=== PATIENT | female | born 1990 | race Caucasian/White ===

== ENCOUNTER 2017-08-01 20:59 | Emergency (ER) | payer OTHER ==
[~2017-08-01] VITALS: Ht 160 cm; Wt 70.3 kg
[2017-08-01 21:12] VITALS: BP 90/48
[2017-08-01] MEDS ORDERED: IV NORMAL SALINE 1,000ML 1,000 ML IV ONE ×2 (21:45)
[2017-08-01] MEDS ORDERED: HYDROmorphone PF 1 MG/ML DISP.SYRIN IV ONE ×2 (21:45→23:30)
[2017-08-01] MEDS ORDERED: ONDANSETRON PF 4 MG/2 ML VIAL. IV ONE (21:45)
[2017-08-01] MEDS ORDERED: KETOROLAC 15 MG/ML VIAL. IV ONE (21:45)
[2017-08-01 21:48] LABS: BASO % 0 % (0-3); EOS # 0.1 x10^3/uL (0.0-0.7); EOS % 1 % (0-3); HEMATOCRIT 42.2 % (36.0-47.0); HEMOGLOBIN 14.3 g/dL (12.0-15.5); LYMPH % 19 % (24-48); MEAN CORPUSCULAR HEMOGLOBIN 31 pg (25-35); MEAN CORPUSCULAR HGB CONC 34 g/dL (31-37); MEAN CORPUSCULAR VOLUME 91 fL (79-100); MONO # 0.6 x10^3/uL (0.0-1.1); MONO % 5 % (0-9); NEUT # 8.3 x10^3uL (1.8-7.7); NEUT % 75 % (31-73); PLATELET COUNT 392 x10^3/uL (140-400); RED BLOOD COUNT 4.62 x10^6/uL (3.50-5.40)
[2017-08-01 21:56] LABS: CREATININE 0.7 mg/dL (0.6-1.0); POTASSIUM 3.6 mmol/L (3.5-5.1); TOTAL BILIRUBIN 0.3 mg/dL (0.2-1.0); TOTAL PROTEIN 8.1 g/dL (6.4-8.2)
[2017-08-01] MEDS ORDERED: CONTRAST GIVEN MC PRN (22:00)
[2017-08-01] MEDS ORDERED: IOHEXOL 300 MG/ML 75 ML VIAL. IV ONE (22:00)
[2017-08-01 22:05] LABS: BACTERIA,URINE FEW /HPF (0-FEW); BILIRUBIN,URINE NEG (NEG); CLARITY,URINE HAZY; COLOR,URINE YELLOW; GLUCOSE,URINE >=1000 mg/dL (NEG); NITRITE,URINE NEG (NEG); SQUAMOUS EPITHELIAL CELL,UR MANY /LPF; UROBILINOGEN,URINE 0.2 mg/dL (0.2 mg/dL)
[2017-08-01 22:26] LABS: FECAL OB PT NEGATIVE (NEG)
--- NOTE | 2017-08-01 22:27 | RAD ---
EXAM: Abdomen and pelvis CT with intravenous contrast. HISTORY: Pain and diarrhea. TECHNIQUE: Computed tomographic images of the abdomen and pelvis were obtained following the administration of 75 cc Omnipaque 300 intravenous contrast. Multiplanar reformatting was performed. *One or more of the following individualized dose reduction techniques were utilized for this examination: 1. Automated exposure control. 2. Adjustment of the mA and/or kV according to patient size. 3. Use of iterative reconstruction technique. COMPARISON: 09/19/2016. FINDINGS: Evaluation of the lower thorax is unremarkable. There is slight fatty infiltration of the liver along the falciform ligament. No suspicious hepatic lesion is seen. The gallbladder, pancreas, spleen, adrenal glands and kidneys are unremarkable. There is no evidence of appendicitis or bowel obstruction. There is no abnormal bowel wall thickening. There is a 4.6 cm right adnexal cyst, likely ovarian or paraovarian in etiology. The uterus is anteverted. There is a small amount of nonspecific pelvic free fluid. No pathologically enlarged lymph node is seen. There is no suspicious osseous lesion. IMPRESSION: 1. 4.6 cm right adnexal cyst, likely ovarian or paraovarian in etiology. There is a small amount of nonspecific pelvic free fluid. 2. Otherwise, no acute abdominal or pelvic finding. Electronically signed by: Jami Castillo MD (08/01/2017 10:23 PM) [facility]
[2017-08-01] MEDS ORDERED: ONDA4TAB10 SL (23:07)
[2017-08-01] MEDS ORDERED: PROM25TA10 PO (23:07)
[2017-08-01] MEDS ORDERED: CIPR500T94 PO (23:08)
--- NOTE | 2017-08-01 23:08 | PHYS DOC ---
Past History Past Medical History: Diabetes, Other Past Surgical History: No Surgical History, Other Smoking: Non-smoker Alcohol Use: None Drug Use: None Adult General Chief Complaint Chief Complaint: DIARRHEA HPI HPI Patient is a 27-year-old female who has a history significant for IDDM presents here today complaining of diarrhea. Patient reports that she's had multiple bowel movements today. Patient reports that she has a history significant for similar episodes with unclear etiology. Patient reports that she was admitted in the past secondary to severe diarrhea and dehydration and DKA. Patient reports that she saw Dr. Horvath yesterday for follow-up evaluation of her abdominal pain. Patient reports that she had pain in her left upper quadrant. Patient reports that she's had an endoscopy/colonoscopy in the past by Dr. Horvath that was unremarkable. He reports no identifiable cause was identified last time she had similar episodes back in July 2015. Patient reports when she saw Dr. Horvath today he recommended that she get an ultrasound of her right upper quadrant. He thought her discomfort in her left upper quadrant may be secondary to gallbladder disease. He also called in a prescription for Creon for her to assist her with her discomfort. Patient reports she's taken all her medications at home without any relief in her pain or symptoms. Patient denies any fevers shakes chills cough cold rhinorrhea. Patient denies any dysuria frequency or urgency. Patient denies any vaginal discharge. Patient denies any bloody stools. Patient is concerned about going to DKA secondary to dehydration. Review of systems: Constitutional: Denies fever or chills Eyes: Denies change in visual acuity, redness, or eye pain HENT: Denies nasal congestion or sore throat All other systems were reviewed and found to be within normal limits, except as documented in this note. Physical exam Constitutional: Well developed, well nourished, no acute distress, non-toxic appearance. HENT: Normocephalic, atraumatic, bilateral external ears normal, oropharynx moist, no oral exudates, nose normal. Eyes: PERRLA, EOMI, conjunctiva normal, no discharge. Neck: Normal range of motion, no tenderness, supple, no stridor. Cardiovascular:Heart rate regular rhythm, Lungs & Thorax: Bilateral breath sounds clear to auscultation Abdomen: Nondistended. Soft nondistended no rebound or guarding. Patient was tenderness to palpation to her left upper quadrant. Patient has no tenderness to palpation to her right upper quadrant or right lower quadrant. Patient has minimal tenderness to her left lower quadrant. Patient has no signs or symptoms consistent with acute surgical abdomen. Patient has no psoas or obturator signs. Patient has no tenderness at McBurney's point. Patient has no Adam sign. Patient NABS. Skin: Warm, dry, no erythema, no rash. Back: No tenderness, no CVA tenderness. Extremities: No tenderness, no cyanosis, no clubbing, ROM intact, no edema. Neurologic: Alert and oriented X 3, normal motor function, normal sensory function, no focal deficits noted. Psychologic: Affect normal, judgement normal, mood normal. ER physical exam is significant for: Tenderness to palpation her left upper quadrant. CBC, CMP, UA, chest all unremarkable. Patient's CT scan of the abdomen pelvis did not reveal any acute source to her pain. Assessment and plan: 1. 27-year-old Female who presents here today secondary to abdominal pain and diarrhea. Patient's ER hospital course is been significant for normal labs. Patient has CT scan of the abdomen and pelvis which did not reveal any acute pathology. Patient received 2 L of normal saline as well as Zofran, Toradol, Dilaudid. Patient's labs revealed no source of her discomfort. They revealed no lab abnormalities OB consistent with her concerning for diabetic ketoacidosis. Patient has no anion gap and no acidosis. Patient has no ketones in her urine. I discussed all lab results with the patient and this time and inform her that I feel that her labs are all unremarkable and no identifiable causes has been identified in that she will likely be able be discharged home safely to continue outpatient workup with Dr. Horvath. With regards or diarrhea, stool sample has been sent to the lab and are still pending. C. difficile, fecal leukocytes, so cultures been sent. Given the amount of diarrhea she is having a fecal be reasonable to start her on ciprofloxacin empirically until cultures return. Current Medications Current Medications Current Medications Medications (Trade) Dose Ordered Sig/Mitzy Start Time Stop Time Status Last Admin Dose Admin Hydromorphone HCl (Dilaudid) 0.5 mg 1X ONCE 08/01/17 21:45 08/01/17 21:46 DC 08/01/17 21:44 0.5 MG Info (Do NOT chart on this entry -- for MONITORING) 1 each PRN DAILY PRN 08/01/17 22:00 08/03/17 21:59 Iohexol (Omnipaque 300 Mg/ml) 75 ml 1X ONCE 08/01/17 22:00 08/01/17 22:01 DC 08/01/17 21:56 75 ML Ketorolac Tromethamine (Toradol) 15 mg 1X ONCE 08/01/17 21:45 08/01/17 21:46 DC 08/01/17 21:46 15 MG Ondansetron HCl (Zofran) 4 mg 1X ONCE 08/01/17 21:45 08/01/17 21:46 DC 08/01/17 21:43 4 MG Sodium Chloride 1,000 ml @ 1,000 mls/hr 1X ONCE 08/01/17 21:45 08/01/17 22:45 DC 08/01/17 21:44 1,000 MLS/HR Allergies Allergies Allergies Coded Allergies Type Severity Reaction Last Updated Verified latex Allergy Mild REDNESS, PEELS 04/04/16 Yes Current Patient Data Vital Signs Vital Signs Date Time Temp Pulse Resp B/P (MAP) Pulse Ox O2 Delivery O2 Flow Rate FiO2 08/01/17 21:12 98.5 111 20 97 Room Air Lab Results Laboratory Tests Test 08/01/17 21:15 08/01/17 21:23 08/01/17 22:37 White Blood Count 11.0 x10^3/uL (4.0-11.0) Red Blood Count 4.62 x10^6/uL (3.50-5.40) Hemoglobin 14.3 g/dL (12.0-15.5) Hematocrit 42.2 % (36.0-47.0) Mean Corpuscular Volume 91 fL (79-100) Mean Corpuscular Hemoglobin 31 pg (25-35) Mean Corpuscular Hemoglobin Concent 34 g/dL (31-37) Red Cell Distribution Width 13.0 % (11.5-14.5) Platelet Count 392 x10^3/uL (140-400) Neutrophils (%) (Auto) 75 % (31-73) H Lymphocytes (%) (Auto) 19 % (24-48) L Monocytes (%) (Auto) 5 % (0-9) Eosinophils (%) (Auto) 1 % (0-3) Basophils (%) (Auto) 0 % (0-3) Neutrophils # (Auto) 8.3 x10^3uL (1.8-7.7) H Lymphocytes # (Auto) 2.0 x10^3/uL (1.0-4.8) Monocytes # (Auto) 0.6 x10^3/uL (0.0-1.1) Eosinophils # (Auto) 0.1 x10^3/uL (0.0-0.7) Basophils # (Auto) 0.0 x10^3/uL (0.0-0.2) Urine Collection Type Unknown Urine Color Yellow Urine Clarity Hazy Urine pH 5.0 Urine Specific [place] 1.015 Urine Protein Neg (NEG-TRACE) Urine Glucose (UA) >=1000 mg/dL (NEG) Urine Ketones (Stick) Trace mg/dL (NEG) Urine Blood Neg (NEG) Urine Nitrite Neg (NEG) Urine Bilirubin Neg (NEG) Urine Urobilinogen Dipstick 0.2 mg/dL (0.2 mg/dL) Urine Leukocyte Esterase Neg (NEG) Urine RBC 3-5 /HPF (0-2) Urine WBC 5-10 /HPF (0-4) Urine Squamous Epithelial Cells Many /LPF Urine Bacteria Few /HPF (0-FEW) Urine Mucus Slight /LPF Stool Occult Blood Negative (NEG) Sodium Level 141 mmol/L (136-145) Potassium Level 3.6 mmol/L (3.5-5.1) Chloride Level 105 mmol/L (98-107) Carbon Dioxide Level 22 mmol/L (21-32) Anion Gap 14 (6-14) Blood Urea Nitrogen 8 mg/dL (7-20) Creatinine 0.7 mg/dL (0.6-1.0) Estimated GFR (Cockcroft-Gault) 102.0 BUN/Creatinine Ratio 11 (6-20) Glucose Level 192 mg/dL (70-99) H Calcium Level 9.0 mg/dL (8.5-10.1) Total Bilirubin 0.3 mg/dL (0.2-1.0) Aspartate Amino Transferase (AST) 13 U/L (15-37) L Alanine Aminotransferase (ALT) 20 U/L (14-59) Alkaline Phosphatase 89 U/L (46-116) Total Protein 8.1 g/dL (6.4-8.2) Albumin 4.0 g/dL (3.4-5.0) Albumin/Globulin Ratio 1.0 (1.0-1.7) Lipase 74 U/L (73-393) Glucose (Fingerstick) 198 mg/dL (70-99) H POC Urine HCG, Qualitative hcg negative (Negative) EKG EKG [] Radiology/Procedures Radiology/Procedures [] Course & Med Decision Making Course & Med Decision Making Pertinent Labs and Imaging studies reviewed. (See chart for details) [] Dragon Disclaimer Dragon Disclaimer This electronic medical record was generated, in whole or in part, using a voice recognition dictation system. Departure Departure: Impression: Primary Impression: Diarrhea Additional Impressions: Abdominal pain, left upper quadrant Diabetes Disposition: 01 HOME, SELF-CARE Condition: IMPROVED Referrals: TIFFANIE EGAN DO (PCP) Patient Instructions: Abdominal Pain (Nonspecific), Diarrhea, Diet for Diarrhea , Adult Scripts Ciprofloxacin Hcl (CIPRO) 500 Mg Tablet 1 TAB PO BID, #14 TAB Prov: VIRGINIA LUGO MD 08/01/17 Ondansetron (ZOFRAN ODT) 4 Mg Tab.rapdis 1 TAB SL Q8HRS for NAUSEA, #15 TAB Prov: VIRGINIA LUGO MD 08/01/17 Promethazine Hcl (PROMETHAZINE HCL) 25 Mg Tablet 1 TAB PO PRN Q6HRS, #20 TAB Prov: VIRGINIA LUGO MD 08/01/17 Problem Qualifiers VIRGINIA LUGO MD Aug 01, 2017 23:08
[2017-08-01] MEDS ORDERED: CIPROFLOXACIN HCL 500 MG TABLET ONE (23:18)
[2017-08-01] MEDS ORDERED: CIPROFLOXACIN HCL 500 MG TABLET PO ONE (23:30)
== END 2017-08-02 | disposition home or self-care (01) ==
LOC: ER 20:59
DX: R19.7 Diarrhea, unspecified (principal); R10.12 Left upper quadrant pain; E11.10 Type 2 diabetes mellitus with ketoacidosis without coma; Z91.040 Latex allergy status
CPT/HCPCS: 36415; 74177; 80053; 81001; 81025; 82274; 82947; 83690; 85025; 87086; 87324; 96361; 96374; 96375; 96376; 99285; J1170; J1885; J2405; Q9967; J7030

== ENCOUNTER → 2017-08-09 | Outpatient (CLI) | payer OTHER ==
[2017-08-01 21:12] VITALS: BP 90/48
[~2017-08-09] VITALS: Ht 157.5 cm; Wt 68.0 kg
[~2017-08-09] MED LIST: CIPR500T94 PO; ONDA4TAB10 SL; PROM25TA10 PO; SINCALIDE 1.36 MCG in IV NORMAL SALINE 50ML 30 ML IV ONE
--- NOTE | 2017-08-09 10:47 | RAD ---
Limited ABDOMINAL ULTRASOUND Clinical History: LUQ PAIN NAUSEA VOMITING 3 TO 4 WEEKS INTERMITTENT SINCE 2013 Comparison: None. Technique: Sonographic examination of the abdomen was performed and multiple grayscale and duplex Doppler static images were obtained. Findings: The majority of the liver is visualized and appears homogeneous. The liver measures 17.6 cm. Portal flow is hepatopetal. The common bile duct is normal in caliber, measuring 4 mm in diameter. The gallbladder wall is not thickened. There is no cholelithiasis or pericholecystic fluid. The pancreas is not well visualized due to overlying bowel gas. The right kidney is normal in morphology and echotexture and measures 11.5 x 5.6 x 5.9 cm. There is no hydronephrosis. Visualized portions of the IVC appear normal. IMPRESSION: There is no acute abdominal abnormality identified sonographically.
--- NOTE | 2017-08-09 13:27 | RAD ---
Nuclear medicine HIDA scan Indication: Abdominal pain nausea vomiting for 3 years. Technique: Multiple planar images of the right upper quadrant obtained after infusion of 5.5 mCi of technetium 99m Choletec. Gallbladder ejection fraction was calculated after infusion of 1.4 mcg of cholecystokinin. Comparison: Ultrasound from 08/09/2017. Findings: Homogeneous distribution of the radiopharmaceutical is seen in the liver. The CBD and gallbladder are visualized at 15 minutes. There is progressive filling of the gallbladder. Excretion of the hepatobiliary agent is seen in the duodenum at 20 minutes with antegrade flow. The gallbladder ejection fraction is 66%. Impression: 1. No evidence of cystic duct obstruction. 2. Gallbladder ejection fraction 66.5%.
== END | disposition home or self-care (01) ==
LOC: US 08:50
PROVIDERS: ATTEND Internal Medicine Gastroenterology
DX: K82.8 Other specified diseases of gallbladder (principal); R10.12 Left upper quadrant pain; R11.2 Nausea with vomiting, unspecified
CPT/HCPCS: 76705; 78226; 96374; 96375; A9537; J2805

== ENCOUNTER → 2017-09-25 | Day surgery (SDC) | payer OTHER ==
[~2017-09-25] MED LIST changes: +BUPIVAC MPF-EPI 0.5%-1:200000 30 ML VIAL. ONE; +BUPIVACAINE MPF 0.25% 30 ML VIAL. ONE; +BUPIVACAINE-EPI 0.25%-1:200000 MPF 30 ML VIAL. ONE; -SINCALIDE 1.36 MCG in IV NORMAL SALINE 50ML 30 ML IV ONE
[2017-09-25 08:07] LABS: U PREG PATIENT NEGATIVE (NEG)
--- NOTE | 2017-09-26 14:25 | PATHOLOGY ---
PATHOLOGY REPORT * * * * * * * * FINAL DIAGNOSIS: Skin and subcutaneous tissue, right ear: - Keloid. - Chronic inflammation, focal. COMMENT: There is no evidence of malignancy. (JPM:mml; 09/26/2017) REPORT ELECTRONICALLY SIGNED BY: Glen Pacheco M.D. DATE/TIME: 09/26/2017 14:24 * * * * * * * * GROSS PATHOLOGY: The specimen is received in formalin, labeled "Cassidy Hawley, right ear keloid," and consists of a polypoid segment of pink-lenz skin measuring 2.4 x 1.8 x 1.2 cm. The epidermal surface is unremarkable. Sectioning reveals pale white-pink and homogenous cut surfaces. Bevel Face [employer] sections are submitted in cassette A1. (SDY; 09/25/2017) INITIAL CPT CODE(S): A; 64891 Professional services performed [place] [facility] [place] [address] Technical services performed by [facility] at [address] [place] [address], [facility] [address], [place] [address]. SPECIMEN(S) RECEIVED: A.Right ear keloid CLINICAL HISTORY: Right ear keloid PATIENT: CASSIDY HAWLEY /AGE: 501/23/1990 (Age: 27) PATIENT #: [id number] ALT CASE #: SPECIMEN COLLECTION DATE: 09/25/2017 SPECIMEN RECEIVED DATE: 09/25/2017 [facility] - [address] [place] [address] - PHONE: [phone] * * * END OF REPORT * * *
== END | disposition home or self-care (01) ==
LOC: SURG 07:08
PROVIDERS: ATTEND Surgery
DX: H60.61 Unspecified chronic otitis externa, right ear (principal); L91.0 Hypertrophic scar; Z90.49 Acquired absence of other specified parts of digestive tract
CPT/HCPCS: 11443; 81025; 88305; J3490; 11402